=== PATIENT | female | born 1990 | race Caucasian/White ===

== ENCOUNTER 2023-06-21 17:08 | Emergency (ER) | payer MEDICAID ==
[~2023-06-21] VITALS: Ht 160 cm; Wt 59.5 kg
[~2023-06-21 17:08] MED LIST: MEDR150D9 IM
[2023-06-21 17:19] VITALS: BP 120/79; PULSE 80; RESP 18; TEMP 97.6; O2SAT 98
== END 2023-06-21 23:44 | disposition left against medical advice (07) ==
LOC: ER 17:08
DX: M25.511 Pain in right shoulder (principal); M25.531 Pain in right wrist; M79.601 Pain in right arm; Z53.21 Procedure and treatment not carried out due to patient leaving prior to being seen by health care provider; W19.XXXA Unspecified fall, initial encounter; Y93.89 Activity, other specified; Y92.89 Other specified places as the place of occurrence of the external cause; Y99.8 Other external cause status
CPT/HCPCS: 73030; 73080; 73110; 99281